=== PATIENT | male | born 1980 | race Caucasian/White ===

== ENCOUNTER 2023-02-17 06:08 | Day surgery (SDC) | payer OTHER ==
[~2023-02-17 06:08] MED LIST: Dextrose 5%-0.45% NaCl 1,000 ML IV SCH; Sodium Chloride 0.9% 10 ML Syringe FLUSH PRN; Sodium Chloride 0.9% 10 ML Syringe FLUSH SCH
[2023-02-17] MEDS ORDERED: fentaNYL 100 MCG/2 ML SDV ONE (06:59)
[2023-02-17] MEDS ORDERED: Midazolam 1 MG/ML 2 ML SDV ONE (06:59)
[2023-02-17] MEDS ORDERED: fentaNYL 100 MCG/2 ML SDV IV ONE ×2 (07:05→07:06)
[2023-02-17] MEDS ORDERED: Midazolam 1 MG/ML 2 ML SDV IV ONE ×7 (07:06→07:14)
== END 2023-02-17 08:34 | disposition home or self-care (01) ==
LOC: DL.ENDO 06:08
PROVIDERS: ATTEND Internal Medicine Gastroenterology
DX: K57.30 Diverticulosis of large intestine without perforation or abscess without bleeding (principal); K64.8 Other hemorrhoids; F12.90 Cannabis use, unspecified, uncomplicated; Z88.2 Allergy status to sulfonamides; Z98.890 Other specified postprocedural states
CPT/HCPCS: J2250; J3010; J7042

== ENCOUNTER 2023-03-17 05:52 | Day surgery (SDC) | payer OTHER ==
[2023-03-17] MEDS ORDERED: fentaNYL 100 MCG/2 ML SDV IV ONE ×3 (05:53→07:02)
[2023-03-17] MEDS ORDERED: Midazolam 1 MG/ML 2 ML SDV IV ONE ×3 (05:53→07:02)
[2023-03-17] MEDS ORDERED: Dextrose 5%-0.45% NaCl 1,000 ML IV SCH (06:00)
[2023-03-17] MEDS ORDERED: Midazolam 1 MG/ML 2 ML SDV ONE (06:19)
[2023-03-17] MEDS ORDERED: fentaNYL 100 MCG/2 ML SDV ONE (06:20)
== END 2023-03-17 08:59 | disposition home or self-care (01) ==
LOC: DL.ENDO 05:52
PROVIDERS: ATTEND Internal Medicine Gastroenterology
DX: K21.9 Gastro-esophageal reflux disease without esophagitis (principal); K58.9 Irritable bowel syndrome, unspecified; F12.90 Cannabis use, unspecified, uncomplicated; J34.2 Deviated nasal septum; Z88.2 Allergy status to sulfonamides
CPT/HCPCS: 87077; J2250; J3010; J7042